=== PATIENT | male | born 1955 | race Caucasian/White ===

== ENCOUNTER 2017-06-30 10:35 | Outpatient (CLI) | payer OTHER | END 2017-06-30 20:57 | disposition home or self-care (01) | LOC: SRD 10:35 | PROVIDERS: ATTEND Internal Medicine | DX: M77.31 Calcaneal spur, right foot (principal) | CPT/HCPCS: 73590-TC ==

== ENCOUNTER 2023-07-13 05:30 | Inpatient (IN) | payer OTHER ==
[~2023-07-13] VITALS: Ht 170.2 cm; Wt 94.8 kg
[2023-07-13] VITALS (7 sets, daily range): BP systolic 106–116; PULSE 72–78; RESP 16–18; TEMP 96.6–99.1; O2SAT 94–99
[2023-07-13] MEDS ORDERED: oxyCODONE HCL 10 MG TAB.ER.12H PO ONE ×2 (05:49→06:00)
[2023-07-13] MEDS ORDERED: SCOPOLAMINE HYDROBROMIDE 1 MG PATCH .72 H (TRANSDERM-SCOP) TD ONE ×2 (05:49→06:00)
[2023-07-13] MEDS ORDERED: ACETAMINOPHEN 500 MG TABLET ONE (05:49)
[2023-07-13] MEDS ORDERED: CELECOXIB 100 MG CAPSULE ONE (05:49)
[2023-07-13] MEDS ORDERED: GABAPENTIN 300 MG CAPSULE ONE (05:50)
[2023-07-13] MEDS ORDERED: CELECOXIB 100 MG CAPSULE PO ONE (06:00)
[2023-07-13] MEDS ORDERED: GABAPENTIN 300 MG CAPSULE PO ONE (06:00)
[2023-07-13] MEDS ORDERED: ACETAMINOPHEN 500 MG TABLET PO ONE (06:00)
[2023-07-13] MEDS ORDERED: CEFAZOLIN SOD 2 GM in D5W 50 ML IV ONE (06:30)
[2023-07-13] MEDS ORDERED: ATOR20TA64 PO (06:38)
[2023-07-13] MEDS ORDERED: METF-833 PO (06:38)
[2023-07-13] MEDS ORDERED: GLIP10TA11 PO (06:38)
[2023-07-13] MEDS ORDERED: METO-542 PO (06:40)
[2023-07-13] MEDS ORDERED: LISI40TA13 PO (06:40)
[2023-07-13] MEDS ORDERED: PLE5 PO (06:41)
[2023-07-13] MEDS ORDERED: EMPA25TA PO (06:43)
[2023-07-13] MEDS ORDERED: LR 1,000 ML IV.SOLN IV ONE (07:00)
[2023-07-13] MEDS ORDERED: LIDOCAINE 2%, 20 ML MDV ONE (07:00)
[2023-07-13] MEDS ORDERED: KETOROLAC TROMETHAMINE 30 MG VIAL ONE (07:00)
[2023-07-13] MEDS ORDERED: ROCURONIUM BROMIDE 10 MG/ML (ZEMURON) ONE (07:00)
[2023-07-13] MEDS ORDERED: MIDAZOLAM HCL/PF 2 MG/2 ML SYRINGE ONE (07:00)
[2023-07-13] MEDS ORDERED: DESFLURANE 15 MIN GAS INH ONE (07:00)
[2023-07-13] MEDS ORDERED: WATER FOR IRRIGATION,STERILE 1,000 ML IRRIG.SOLN IR ONE (07:00)
[2023-07-13] MEDS ORDERED: SUGAMMADEX SODIUM 200 MG/2 ML VIAL IV ONE (07:00)
[2023-07-13] MEDS ORDERED: TRANEXAMIC ACID 1,000 MG/10 ML VIAL ONE (07:00)
[2023-07-13] MEDS ORDERED: NS IRRIG SOLN 1000 ML IR ONE (07:00)
[2023-07-13] MEDS ORDERED: PROPOFOL 200MG/ 20ML VIAL (DIPRIVAN) IV ONE (07:00)
[2023-07-13] MEDS ORDERED: VANCOMYCIN HCL 1000 MG/VIAL IV ONE (07:00)
[2023-07-13] MEDS ORDERED: BUPIVACAINE /PF 0.25% 30 ML VIAL INJ ONE (07:00)
[2023-07-13] MEDS ORDERED: MEPERIDINE HCL/PF 25 MG/ML DISP.SYRIN IVP PRN (08:15)
[2023-07-13] MEDS ORDERED: NALOXONE HCL 0.4 MG/ML AMP (NARCAN) IVP PRN ×4 (08:15→10:15)
[2023-07-13] MEDS ORDERED: HYDROmorphone 1 MG/ML INJ. CARTRIDGE IVP PRN ×5 (08:15→11:00)
[2023-07-13] MEDS ORDERED: DIPHENHYDRAMINE INJ 50 MG/ML VIAL IVP PRN (08:15)
[2023-07-13] MEDS ORDERED: LR 1,000 ML IV SCH (08:15)
[2023-07-13] MEDS ORDERED: ONDANSETRON HCL 4 MG/2 ML VIAL IVP PRN ×2 (08:15→11:45)
[2023-07-13] MEDS ORDERED: MIDAZOLAM HCL 2 MG/2 ML VIAL (VERSED) IVP PRN (08:15)
[2023-07-13] MEDS ORDERED: METOCLOPRAMIDE HCL 10 MG/2 ML VIAL IVP PRN ×2 (08:15→10:15)
[2023-07-13] MEDS ORDERED: DEXTROSE 50% JECT 50 ML DISP.SYRIN IVP PRN (10:15)
[2023-07-13] MEDS ORDERED: D5W 1,000 ML IV PRN (10:15)
[2023-07-13] MEDS ORDERED: DIPHENHYDRAMINE HCL 25 MG CAPSULE PO PRN (10:15)
[2023-07-13] MEDS ORDERED: BISACODYL 10 MG/SUPPOSITORY RC PRN (10:15)
[2023-07-13] MEDS ORDERED: GLUCOSE (DEXTROSE) ORAL GEL -Adults PO PRN (10:15)
[2023-07-13] MEDS ORDERED: LACTULOSE 20 GM/30 ML UDC PO PRN (10:15)
[2023-07-13] MEDS ORDERED: oxyCODONE HCL 5 MG TABLET PO PRN ×2 (11:00)
[2023-07-13] MEDS ORDERED: LORATADINE 10 MG TABLET PO PRN (11:00)
[2023-07-13] MEDS ORDERED: traMADol HCL HCL 50 MG TABLET (ULTRAM) PO PRN (11:00)
[2023-07-13] MEDS: ceFAZolin SODIUM 2 GM in D5W 50 ML IV SCH ×2 (11:15→18:21)
[2023-07-13] MEDS: KETOROLAC TROMETHAMINE 10 MG TABLET (TORADOL) PO SCH ×2 (15:29→22:33)
[2023-07-13] MEDS: ACETAMINOPHEN 500 MG TABLET PO SCH ×2 (15:30→22:34)
[2023-07-13] MEDS: SENNOSIDES/DOCUSATE SODIUM 1 TAB TABLET(SENOKOT-S) PO SCH (22:26)
[2023-07-13] MEDS: INSULIN REGULAR, HUMAN 100 UNITS/ML, 3 ML VIAL (humuLIN R) SUBCUT PRN (22:49)
[2023-07-14 01:36] VITALS: BP_SYST 107; PULSE 84; RESP 17; TEMP 98; O2SAT 96
[2023-07-14] MEDS: ceFAZolin SODIUM 2 GM in D5W 50 ML IV SCH (03:20)
[2023-07-14 05:16] LABS: BASOPHILS % (AUTO) 0.2 % (0.0-2.0); EOSINOPHILS % (AUTO) 0.3 % (0.0-4.0); HEMOGLOBIN 11.1 g/dL (14.0-18.0); LYMPHOCYTES # (AUTO) 0.8 K/uL (1.0-5.5); LYMPHOCYTES % (AUTO) 9.5 % (20.5-51.5); MEAN CORPUSCULAR HEMOGLOBIN 29 pg (27-31); MEAN CORPUSCULAR HGB CONC 33 % (32-36); MEAN CORPUSCULAR VOLUME 89 fL (79.0-98.0); MONOCYTES # (AUTO) 0.8 K/uL (0.0-1.0); MONOCYTES % (AUTO) 9.5 % (1.7-9.3); NEUTROPHILS # (AUTO) 7.1 K/uL (1.8-7.7); NEUTROPHILS % (AUTO) 80.5 % (40.0-70.0); PLATELET COUNT (AUTO) 179 K/uL (130-430); RED BLOOD CELL COUNT(AUTO) 3.83 MIL/uL (4.2-6.2); RED CELL DISTRIBUTION WIDTH 15.3 % (9.0-15.0); WHITE BLOOD COUNT (AUTO) 8.9 K/uL (4.8-10.8)
[2023-07-14 05:30] LABS: ALBUMIN 2.8 g/dL (3.4-4.8); CALCIUM 8.7 mg/dL (8.4-11.0); CREATININE 0.79 mg/dL (0.55-1.30); POTASSIUM 4.1 mmol/L (3.5-5.1); TOTAL BILIRUBIN 0.5 mg/dL (0.0-1.0); TOTAL PROTEIN, SERUM 5.5 g/dL (6.4-8.3)
[2023-07-14] MEDS: KETOROLAC TROMETHAMINE 10 MG TABLET (TORADOL) PO SCH (06:05)
[2023-07-14] MEDS: ACETAMINOPHEN 500 MG TABLET PO SCH (06:07)
[2023-07-14] MEDS: INSULIN REGULAR, HUMAN 100 UNITS/ML, 3 ML VIAL (humuLIN R) SUBCUT PRN ×2 (06:17→11:04)
[2023-07-14 08:29] VITALS: BP_SYST 98; PULSE 67; RESP 16; TEMP 97.7; O2SAT 99
[2023-07-14] MEDS ORDERED: lisinopriL 20 MG TABLET PO SCH (09:00)
[2023-07-14] MEDS ORDERED: FELODIPINE 5 MG TAB.SR.24H (PLENDIL) PO SCH (09:00)
[2023-07-14] MEDS ORDERED: METOPROLOL SUCCINATE 50 MG TAB.SR.24H (TOPROL XL) PO SCH (09:00)
[2023-07-14] MEDS ORDERED: ASPIRIN 81 MG TAB.CHEW PO SCH (09:00)
[2023-07-14] MEDS ORDERED: amLODIPine BESYLATE 5 MG TABLET PO SCH (09:00)
[2023-07-14] MEDS ORDERED: ATORVASTATIN 20 MG TABLET PO SCH (09:00)
[2023-07-14] MEDS: SENNOSIDES/DOCUSATE SODIUM 1 TAB TABLET(SENOKOT-S) PO SCH (09:08)
[2023-07-14] MEDS ORDERED: CELECOXIB 200 MG CAPSULE PO SCH (11:00)
[2023-07-14 12:16] VITALS: BP_SYST 105; PULSE 65; RESP 16; TEMP 97.8; O2SAT 95
[2023-07-14 12:40] VITALS: BP_SYST 105; PULSE 65; RESP 16; TEMP 97.8; O2SAT 95
== END 2023-07-14 14:16 | disposition home health service (06) | DRG 470 ==
LOC: SMU 05:30
PROVIDERS: ADMIT Student in an Organized Health Care Education/Training Program; ATTEND Student in an Organized Health Care Education/Training Program
PROC: 0SR90JA Replacement of Right Hip Joint with Synthetic Substitute, Uncemented, Open Approach (ICD-10-PCS; principal; 2023-07-13 07:00)
DX: M16.11 Unilateral primary osteoarthritis, right hip (principal); E44.0 Moderate protein-calorie malnutrition; Z68.32 Body mass index [BMI] 32.0-32.9, adult
CPT/HCPCS: 36415; 72170-TC; 76001; 80053; 82962; 85025; 87081; 88304; 88311; 94010; 94760; 96379; 97110-GP; 97116-GP; 97530-GP; A4649; C1713; C1776; J0690; J1885; J2001; J2704; J3370; J3465; J3490; J7060; J7120

== ENCOUNTER 2023-07-27 14:55 | Emergency (ER) | payer OTHER ==
[~2023-07-27] VITALS: Ht 170.2 cm; Wt 93.0 kg
[~2023-07-27 14:55] MED LIST: ATOR20TA64 PO; EMPA25TA PO; GLIP10TA11 PO; LISI40TA13 PO; METF-833 PO; METO-542 PO; PLE5 PO
[2023-07-27 15:27] VITALS: BP_SYST 125; PULSE 87; RESP 18; TEMP 98.2; O2SAT 97
[2023-07-27 16:42] VITALS: BP_SYST 125; PULSE 87; RESP 18; TEMP 98.2; O2SAT 97
== END 2023-07-27 16:36 | disposition home or self-care (01) ==
LOC: SED 14:55
DX: R60.0 Localized edema (principal); Z88.5 Allergy status to narcotic agent; Z79.899 Other long term (current) drug therapy
CPT/HCPCS: 93970; 99284